=== PATIENT | female | born 1995 | race African-American/Black ===

== ENCOUNTER 2021-09-05 21:23 | Emergency (ER) | payer BC ==
[~2021-09-05] VITALS: Ht 154.9 cm; Wt 59.0 kg
[2021-09-05] MEDS ORDERED: ONDANSETRON 4MG ODT PO STA (22:16)
[2021-09-05] MEDS ORDERED: DIPHENHYDRAMINE 25MG CAPSULE PO ONE (22:30)
[2021-09-05] MEDS ORDERED: NAPROXEN 375MG TABLET PO ONE (22:30)
[2021-09-05 23:25] VITALS: BP 127/84
[2021-09-05] MEDS ORDERED: ONDA4TAB5 MT (23:28)
== END 2021-09-05 23:30 | disposition home or self-care (01) ==
LOC: ER 21:23
DX: G43.909 Migraine, unspecified, not intractable, without status migrainosus (principal); Z98.890 Other specified postprocedural states
CPT/HCPCS: 99284; Q0162; Q0163